=== PATIENT | male | born 1950 | race Two or more races ===

== ENCOUNTER 2017-04-09 17:56 | Emergency (ER) | payer OTHER ==
[~2017-04-09] VITALS: Ht 167.6 cm; Wt 77.1 kg
[~2017-04-09 17:56] MED LIST: NKM
[2017-04-09 19:20] VITALS: BP 120/68
[2017-04-09] MEDS ORDERED: IBUPROFEN600 MG ORAL (19:39)
[2017-04-09 19:50] VITALS: BP 120/68
--- NOTE | 2017-04-10 08:46 | Diagnostic Imaging Report ---
Indication: PAIN Technique: XRAY KNEE THREE VIEWS LEFT Comparison: None. Findings: The osseous structures are intact. There is no fracture or destruction. The visualized joints are normal. The soft tissues are unremarkable. Impression: Normal.
--- NOTE | 2017-04-10 08:46 | Diagnostic Imaging Report ---
Indication: PAIN Technique: XRAY KNEE THREE VIEWS RIGHT Comparison: None. Findings: The osseous structures are intact. There is no fracture or destruction. The visualized joints are normal. The soft tissues are unremarkable. Impression: Normal.
--- NOTE | 2017-04-10 08:48 | Diagnostic Imaging Report ---
Indication: PAIN Technique: XRAY WRIST MIN 3V LEFT Comparison: None. Findings: There is narrowing of the first metacarpal carpal joint with spur formation. The remainder the joints are normal. The bones are unremarkable. No fracture. No bone destruction. Impression: Degenerative change of the first metacarpal carpal joint.
--- NOTE | 2017-04-10 08:48 | Diagnostic Imaging Report ---
Indication: PAIN Technique: XRAY WRIST MIN 3V RIGHT Comparison: None. Findings: The osseous structures are intact. There is no fracture or destruction. The visualized joints are normal. The soft tissues are unremarkable. Impression: Normal.
--- NOTE | 2017-04-10 12:16 | Emergency Room Report ---
History of Present Illness General Chief Complaint: Multiple Trauma/Fall Source: Patient Present Illness HPI The patient is a 66-year-old male presenting for bilateral wrist and knee pain after falling at work today. He states that he tripped and fell. He denies hitting his head or loss of consciousness. Pain is described as a 7/10 dull ache to both wrists and both knees. Does not radiate. Worse with movement and touch. He denies previous injury to these areas. He denies any numbness or tingling He denies any other symptoms Allergies: Coded Allergies: No Known Allergies (Unverified , 08/01/15) Patient History Past Medical History: see triage record Pertinent Family History: none Reviewed Nursing Documentation: PMH: Agreed, PSxH: Agreed Nursing Documentation-PMH Past Medical History: No Stated History Review of Systems All Other Systems: negative except mentioned in HPI Physical Exam Vital Signs Date Time Temp Pulse Resp B/P Pulse Ox O2 Delivery O2 Flow Rate FiO2 04/09/17 18:10 97.5 68 18 124/66 98 Room Air Sp02 EP Interpretation: reviewed, normal General Appearance: no apparent distress, alert, GCS 15, non-toxic Head: normocephalic, atraumatic Eyes: bilateral eye PERRL, bilateral eye normal inspection ENT: hearing grossly normal, normal pharynx, no angioedema, normal voice Neck: full range of motion, supple/symm/no masses Musculoskeletal: back normal, gait/station normal, normal range of motion, tender - TTP over bilat patellas and diffuse over bilat wrists. Neurologic: alert, oriented x3, responsive, motor strength/tone normal, sensory intact, speech normal Psychiatric: judgement/insight normal, memory normal, mood/affect normal, no suicidal/homicidal ideation Skin: normal color, no rash, warm/dry, well hydrated Medical Decision Making PA Attestation Dr. Agosto is my supervising physician. Patient management was discussed with my supervising physician Diagnostic Impression: Primary Impression: Contusion, knee Qualified Codes: S80.00XA - Contusion of unspecified knee, initial encounter Additional Impression: Contusion, wrist Qualified Codes: S60.219A - Contusion of unspecified wrist, initial encounter ER Course The patient is a 66-year-old male presenting for bilateral wrist and knee pain Ddx considered include but not limited to sprain/strain, fracture, contusion Physical exam: Vitals within normal limits. No apparent distress Musculoskeletal: There is diffuse tenderness to palpation over bilateral wrists. No obvious deformity. Full active range of motion. Knees: Tenderness to palpation over bilateral patellas. No obvious deformity. Normal gait. X-rays of both wrists and knees are unremarkable To be discharged home and is given rice instructions. He will follow up with workers compensation. This has been interpreted by the medical science liaison. Other X-Ray Diagnostic Results Other X-Ray Diagnostic Results #1: X-Ray ordered: R and L wrists # of Views/Limited Vs Complete: 3 View Indication: Pain EP Interpretation: Yes Interpretation: no dislocation, no soft tissue swelling, no fractures Impression: No acute disease Interpreting ER Provider: Dr. Surendra Rolon Text I am acting as scribe for my supervising physician. My supervising physician's interpretation of the L and R wrist xrays are there are no fractures, dislocations or soft tissue swelling. Other X-Ray Diagnostic Results #2: X-Ray ordered: R and L knees # of Views/Limited Vs Complete: 3 View Indication: Pain EP Interpretation: Yes Interpretation: no dislocation, no soft tissue swelling, no fractures Impression: No acute disease Interpreting ER Provider: Dr. Surendra Galeas I am acting as scribe for my supervising physician. My supervising physician's interpretation of the L and R knees xrays are there are no fractures, dislocations or soft tissue swelling. Last Vital Signs Date Time Temp Pulse Resp B/P Pulse Ox O2 Delivery O2 Flow Rate FiO2 04/09/17 19:50 97.8 89 17 120/68 99 Room Air Status: improved Disposition: HOME, SELF-CARE Condition: Improved Scripts Ibuprofen* (MOTRIN*) 600 Mg Tablet 600 MG ORAL Q8H Y for For Pain, #30 TAB 0 Refills Prov: MICKEY CHIN P.Selena. 04/09/17 Patient Instructions: Knee Pain, Wrist Pain Additional Instructions: I discussed my findings with the patient. All questions and concerns have been answered. Treatment and medication compliance have been addressed. I advised the patient that they need to follow up with PMD in 3-5 days. Return to ED if pain remains or worsens, numbness or tingling occurs, new rash is noticed, fever is noticed, or if needed for any reason. Patient verbalized understanding of discharge instructions. MICKEY CHIN Apr 10, 2017 12:16
== END 2017-04-09 19:50 | disposition home or self-care (01) ==
LOC: EMR 18:30
DX: S80.02XA Contusion of left knee, initial encounter (principal); S80.01XA Contusion of right knee, initial encounter; S60.212A Contusion of left wrist, initial encounter; S60.211A Contusion of right wrist, initial encounter; W19.XXXA Unspecified fall, initial encounter; Y92.511 Restaurant or cafe as the place of occurrence of the external cause; Y99.0 Civilian activity done for income or pay
CPT/HCPCS: 99284